=== PATIENT | female | born 1995 | race Caucasian/White ===

== ENCOUNTER 2016-05-30 18:09 | Emergency (ER) | payer OTHER ==
[2016-05-30] MEDS ORDERED: HYDROcodone/Acetaminophen 10/325 mg Tablet ONE (22:56)
[2016-05-30] MEDS ORDERED: Naproxen 500 MG TAB ONE (22:56)
--- NOTE | 2016-05-30 22:58 | RAD ---
RADIOGRAPH LEFT FEMUR 2 VIEWS: 05/30/16 HISTORY: Acute traumatic left thigh pain after fall. FINDINGS: There is no fracture or any other osseous abnormality. IMPRESSION: Normal. POS: [facility]
--- NOTE | 2016-05-30 22:59 | RAD ---
RADIOGRAPH LEFT FOREARM 2 VIEWS: 05/30/16 HISTORY: 20-year-old female with acute forearm pain after fall. FINDINGS: There is no fracture or any other osseous abnormality of the radius or ulna. IMPRESSION: Normal. POS: [facility]
--- NOTE | 2016-05-30 23:00 | RAD ---
RADIOGRAPH LEFT KNEE 4 VIEWS: 05/30/16 HISTORY: 20-year-old female with acute traumatic left knee pain after fall. FINDINGS: No joint effusion, or edema in Hoffa's fat pad. No fracture, dislocation, or any other osseous abnor mality. IMPRESSION: Normal. POS: [facility]
--- NOTE | 2016-05-30 23:01 | RAD ---
RADIOGRAPH PELVIS 1 VIEW: 05/30/16 HISTORY: 20-year-old female with persistent left pelvic pain after fall yesterday. FINDINGS: The pelvic ring appears to be intact. There is no evidence of fracture or dislocation. IMPRESSION: Negative. POS: [facility]
== END 2016-05-30 23:07 | disposition home or self-care (01) ==
LOC: MADERS 18:09
DX: S50.12XA Contusion of left forearm, initial encounter (principal); F17.210 Nicotine dependence, cigarettes, uncomplicated; W01.0XXA Fall on same level from slipping, tripping and stumbling without subsequent striking against object, initial encounter; Y99.0 Civilian activity done for income or pay
CPT/HCPCS: 72170

== ENCOUNTER 2017-10-10 14:29 | Emergency (ER) | payer OTHER ==
[2017-10-10] MEDS ORDERED: methylPREDNISolone Sod Succ/PF 125 MG/2 ML VIAL ONE (15:04)
[2017-10-10] MEDS ORDERED: Amoxicillin/Potassium Clav 875 MG TAB ONE (15:04)
[2017-10-10] MEDS ORDERED: Phenergan/Codeine 10-6.25mg/5ml UDCUP ONE (15:05)
== END 2017-10-10 14:30 | disposition home or self-care (01) ==
LOC: MADERS 14:29
DX: J20.9 Acute bronchitis, unspecified (principal); F17.210 Nicotine dependence, cigarettes, uncomplicated; Z79.899 Other long term (current) drug therapy
CPT/HCPCS: 96372; J2930

== ENCOUNTER 2017-12-12 14:35 | Emergency (ER) | payer MEDICAID, OTHER ==
[2017-12-12 15:19] LABS: Pregnancy Test - Urine (BHCG) Negative (Negative); Pregu Control Background? CLEAR/WHITE (CLR/WHITE); Pregu Control Bar Appear? YES (CONTROL BAR); Specific Gravity 1.007 (1.002-1.036)
[2017-12-12] MEDS ORDERED: Ketorolac Tromethamine 30 MG/ML VIAL ONE ×2 (15:28→15:39)
[2017-12-12] MEDS ORDERED: Sodium Chloride 0.9% 500 ML BAG ONE (20:33)
== END 2017-12-12 16:17 | disposition home or self-care (01) ==
LOC: MADERS 14:35
DX: I10 Essential (primary) hypertension (principal); G44.209 Tension-type headache, unspecified, not intractable; F17.210 Nicotine dependence, cigarettes, uncomplicated; I35.9 Nonrheumatic aortic valve disorder, unspecified
CPT/HCPCS: 81025; 96361; 96374; J1885; J7050

== ENCOUNTER 2018-02-08 20:56 | Emergency (ER) | payer MEDICAID | END 2018-02-08 21:40 | disposition home or self-care (01) | LOC: MADERS 20:56 | DX: S61.001A Unspecified open wound of right thumb without damage to nail, initial encounter (principal); F17.210 Nicotine dependence, cigarettes, uncomplicated; Z71.6 Tobacco abuse counseling; W26.8XXA Contact with other sharp object(s), not elsewhere classified, initial encounter | CPT/HCPCS: 99406 ==

== ENCOUNTER 2018-04-22 02:05 | Emergency (ER) | payer MEDICAID ==
[2018-04-22] MEDS ORDERED: Benzonatate 100 MG CAP ONE (02:59)
--- NOTE | 2018-04-22 07:10 | RAD ---
CHEST TWO VIEWS: HISTORY: Cough for a week. COMPARISON: None. FINDINGS: Two views of the chest show normal sized cardiomediastinal silhouette. There is no evidence of consol idation, mass, or pleural effusion. The bones are unremarkable. IMPRESSION: No evidence of acute cardiopulmonary disease. POS: [facility]
== END 2018-04-22 03:18 | disposition home or self-care (01) ==
LOC: MADERS 02:05
DX: R05 Cough (principal); I10 Essential (primary) hypertension; F17.210 Nicotine dependence, cigarettes, uncomplicated
CPT/HCPCS: 71046; 87804; J7620

== ENCOUNTER 2020-09-20 19:23 | Emergency (ER) | payer BC, OTHER ==
[2020-09-21 18:29] LABS: SARS-CoV-2 PCR by NAA DETECTED (NotDetected)
== END 2020-09-20 21:04 | disposition home or self-care (01) ==
LOC: MADERS 19:23
DX: U07.1 COVID-19 (principal); I35.9 Nonrheumatic aortic valve disorder, unspecified; F17.210 Nicotine dependence, cigarettes, uncomplicated; I10 Essential (primary) hypertension
CPT/HCPCS: 99282; U0003; U0005

== ENCOUNTER 2020-10-23 00:07 | Emergency (ER) | payer BC ==
[2020-10-23] MEDS ORDERED: Ketorolac Tromethamine 30 MG/ML VIAL ONE (01:16)
[2020-10-23 01:17] LABS: #Basophils 0.1 thou/uL (0.0-0.2); #Eosinphils 0.1 thou/uL (0.0-0.7); #Lymphocytes 3.4 thou/uL (1.20-3.40); #Monocytes 0.8 thou/uL (0.11-0.59); #Neutrophils 3.3 thou/uL (1.40-6.50); %Basophils 0.8 % (0.0-1.0); %Eosinophils 1.2 % (0.0-10.0); %Lymphocytes 44.9 % (21.0-51.0); %Neutrophils 43.1 % (42.0-75.0); Hemoglobin 14.1 g/dL (12.0-16.0); Mean Corpuscular HGB CONC 33.1 g/dL (32.0-36.0); Mean Corpuscular Hemoglobin 29.1 pg (27.0-31.0); Mean Corpuscular Volume 87.9 fL (78.0-98.0); Mean Platelet Volume 9.1 fL (7.4-10.4); Platelet Count 194 thou/uL (130-400); RBC Distribution Width 11.6 % (11.5-14.5); Red Blood Cell (RBC) Count 4.85 mill/uL (4.20-5.40); White Blood Cell (WBC) Count 7.5 thou/uL (4.8-10.8)
[2020-10-23 01:37] LABS: ALT (SGPT) 13 U/L (8-55); AST (SGOT) 14 U/L (5-34); Albumin 4.9 g/dL (3.5-5.0); Alkaline Phosphatase 62 U/L (40-110); Anion Gap 13 mmol/L (10-20); BUN (Urea Nitrogen) 4 mg/dL (7.0-18.7); Bilirubin, Total 0.3 mg/dL (0.2-1.2); Calc. Creatinine Clearance 0 mL/min (70-130); Calcium 10.1 mg/dL (7.8-10.44); Carbon Dioxide 28 mmol/L (22-29); Chloride 104 mmol/L (98-107); Globulin 2.8 g/dL (2.4-3.5); Glucose 79 mg/dL (70-105); Potassium 3.3 mmol/L (3.5-5.1); Protein, Total 7.7 g/dL (6.0-8.3); Sodium 142 mmol/L (136-145)
[2020-10-23] MEDS ORDERED: Potassium Chloride 20 MEQ TAB ONE (02:00)
== END 2020-10-23 02:06 | disposition home or self-care (01) ==
LOC: MADERS 00:07
DX: R09.1 Pleurisy (principal); I10 Essential (primary) hypertension; F17.210 Nicotine dependence, cigarettes, uncomplicated
CPT/HCPCS: 36415; 71046; 80053; 84484; 85025; 85379; 93005; 96374; J1885

== ENCOUNTER 2021-03-12 11:09 | Outpatient (CLI) | payer BC | END 2021-03-12 11:10 | disposition home or self-care (01) | LOC: MADRAD 11:09 | PROVIDERS: ATTEND Family Medicine | DX: M25.531 Pain in right wrist (principal) ==

== ENCOUNTER 2024-10-13 08:48 | Emergency (ER) | payer BC, OTHER | END 2024-10-13 09:45 | disposition home or self-care (01) | LOC: MADERS 08:48 | DX: R05.9 Cough, unspecified (principal); R50.9 Fever, unspecified; J02.9 Acute pharyngitis, unspecified; I10 Essential (primary) hypertension; F17.210 Nicotine dependence, cigarettes, uncomplicated; Z20.822 Contact with and (suspected) exposure to COVID-19 | CPT/HCPCS: 99283 ==

== ENCOUNTER 2025-02-08 09:31 | Outpatient (CLI) | payer OTHER | END 2025-02-08 09:32 | disposition home or self-care (01) | LOC: MADRAD 09:31 | PROVIDERS: ATTEND Family Medicine | DX: M54.2 Cervicalgia (principal); M25.511 Pain in right shoulder | CPT/HCPCS: 72040 ==